=== PATIENT | female | born 1975 | race Caucasian/White ===

== ENCOUNTER 2017-03-12 01:34 | Emergency (ER) | payer OTHER ==
[~2017-03-12] VITALS: Ht 165.1 cm; Wt 86.1 kg
[2017-03-12] MEDS ORDERED: FLEET ENEMA-AD118 ML PR (03:00)
[2017-03-12] MEDS ORDERED: MIRALAX255 GM PO (03:00)
[2017-03-12 03:47] VITALS: BP 158/82
== END 2017-03-12 03:55 | disposition home or self-care (01) ==
LOC: EME 01:34
DX: K59.00 Constipation, unspecified (principal)
CPT/HCPCS: 74000; 99281; 99284; J7030